=== PATIENT | female | born 1990 | race Caucasian/White ===

== ENCOUNTER 2017-07-14 03:29 | Emergency (ER) | payer OTHER ==
[2017-07-14 04:20] VITALS: BP 101/77; PULSE 93; TEMP 98.8; BMI 18.8
[2017-07-14] MEDS ORDERED: valACYclovir HCL 1000 MG TABLET PO ONE (04:57)
--- NOTE | 2017-07-14 05:03 | PDOC ---
History of Present Illness - General Chief Complaint: Cold Symptoms Stated Complaint: FEVER Time Seen by Provider: 07/14/17 04:32 History Source: Patient Exam Limitations: No Limitations - History of Present Illness Initial Comments: 07/14/17 04:58 26 yo Female patient with no significant past medical history presents to ED c/ o subjective fever, and cold sores on lips. Patient reports this being the third outbreak this month. She states last night outbreak of sores on lips occurred followed by subjective fever the following morning. Patient states she took Tylenol/Advil for symptoms. LNMP: Jul 03. She denies any other complaints at this time. Timing/Duration: reports: yesterday. denies: just prior to arrival, other, constant, changing over time, getting worse, gone now, intermittent, week, this afternoon, this evening, this morning Severity: reports: moderate. denies: mild, severe Episode Description: See HPI Possible Cause: Yes: other (Stress) Modifying Factors: worse with: activity, albuterol inhaler, albuterol nebulizer , antibiotics, coughing, lying down, oxygen, rest, other Associated Symptoms: denies: denies symptoms, chest pain/soreness, cough, dizziness, earache, facial pain, fever/chills, headache, lightheadedness, muscle aches, nasal congestion, nasal drainage, shortness of breath, sinus infection, sore throat, wheezing, other Aspirin Received prior to arrival: No: no aspirin today, unknown, 81 mg x 1, 81 mg x 2, 81 mg x 3, 81 mg x 4, 325 mg x 1, provided at home, provided by EMS, provided by ED Past History - Travel Traveled outside of the country in the last 30 days: No Close contact w/someone who was outside of country & ill: No - Past Medical History Allergies/Adverse Reactions: Allergies Allergy/AdvReac Type Severity Reaction Status Date / Time No Known Allergies Allergy Verified 07/14/17 03:58 Home Medications: Ambulatory Orders NK [No Known Home Medication] 07/14/17 Valacyclovir HCl [Valtrex -] 2,000 mg PO ONCE #2 tablet 07/14/17 Valacyclovir HCl [Valtrex -] 500 mg PO DAILY #10 tablet 07/14/17 - Suicide/Smoking/Psychosocial Hx Smoking History: Never smoked Have you smoked in the past 12 months: No Information on smoking cessation initiated: No Hx Alcohol Use: No Drug/Substance Use Hx: No Respiratory Specific PMHX - Complaint Specific PMHX Angina: No Bronchitis: No Pneumonia: No Pulmonary Embolus: No TB (Tuberculosis): No Review of Systems - Review of Systems Able to Perform ROS?: Yes Is the patient limited [place] proficient: No Constitutional: Yes: Fever (Subjective ). No: Chills HEENTM: Yes: Mouth Pain. No: Nose Congestion, Throat Pain, Throat Swelling, Difficulty Swallowing, Mouth Swelling Respiratory: No: Cough Cardiac (ROS): No: Chest Pain All Other Systems: Reviewed and Negative *Physical Exam - Vital Signs Last Vital Signs Temp Pulse Resp BP Pulse Ox 98.8 F 93 H 14 101/77 100 07/14/17 03:59 07/14/17 03:59 07/14/17 03:59 07/14/17 03:59 07/14/17 03:59 - Physical Exam General Appearance: Yes: Nourished, Appropriately Dressed, Mild Distress. No: Apparent Distress, Moderate Distress, Severe Distress HEENT: positive: EOMI, JOHANN, Normal ENT Inspection, Normal Voice, Symmetrical, TMs Normal, Pharynx Normal. negative: Pharyngeal Erythema, Tonsillar Exudate, Tonsillar Erythema, Nasal Congestion, Rhinorrhea, TM Bulging, TM Dull, TM Erythema Neck: positive: Trachea midline, Normal Thyroid, Supple. negative: Rigid, Stridor, Lymphadenopathy (R), Lymphadenopathy (L), Tender lateral Respiratory/Chest: positive: Lungs Clear, Normal Breath Sounds. negative: Chest Tender, Respiratory Distress, Accessory Muscle Use, Labored Respiration, Rapid RR, Rhonchi, Stridor, Wheezing Cardiovascular: positive: Regular Rhythm, Regular Rate Musculoskeletal: positive: Normal Inspection. negative: CVA Tenderness Extremity: positive: Normal Capillary Refill, Normal Inspection, Normal Range of Motion. negative: Pedal Edema, Swelling, Calf Tenderness, Erythema, Inflammation Integumentary: positive: Normal Color, Dry, Warm Neurologic: positive: salad maker II-XII NML intact, Fully Oriented, Alert, Normal Mood/ Affect, Normal Response, Motor Strength 5/5 *DC/Admit/Observation/Transfer Diagnosis at time of Disposition: Herpes labialis - Discharge Dispostion Disposition: HOME Condition at time of disposition: Stable Admit: No - Prescriptions Prescriptions: Valacyclovir HCl [Valtrex -] 2,000 mg PO ONCE #2 tablet Valacyclovir HCl [Valtrex -] 500 mg PO DAILY #10 tablet - Patient Instructions Printed Discharge Instructions: DI for Cold Sores Additional Instructions: Follow up with your primary care provider for future treatment/evaluation. Please follow these instructions carefully: 1. Take your second dose of Valtrex 2,000mg at 5pm tonight. Then, 2. Start your suppression dose on Friday morning or evening at 500mg daily x 10 days. Return if your symptoms worsen or any concerns for further evaluation. Do not take more than prescribed dose as this will not speed up recovery. Thinks like stress, infection, co-morbidity cause frequent outbreaks. Print Language: SINHALA - Post Discharge Activity Forms/Work/School Notes: Back to Work
== END 2017-07-14 05:57 | disposition home or self-care (01) ==
LOC: JER 03:29
DX: B00.1 Herpesviral vesicular dermatitis (principal)
CPT/HCPCS: 99281-25